=== PATIENT | male | born 1955 ===

== ENCOUNTER 2020-09-15 07:56 | Inpatient (IN) | payer OTHER ==
[~2020-09-15] VITALS: Ht 170.2 cm; Wt 83.9 kg
[~2020-09-15 07:56] MED LIST: NORVASC5 MG PO; PROCARDIA PO
[2020-09-16] MEDS ORDERED: HALOBETASOL PRO15 G1 (08:09)
[2020-09-16] MEDS ORDERED: NYSTATIN-TRIAMC15 GM (08:09)
[2020-09-16] MEDS ORDERED: CLOBETASOL PROP50 ML (08:09)
[2020-09-16] MEDS ORDERED: SULINDAC200 MG (08:10)
[2020-09-16] MEDS ORDERED: ALPRAZOLAM0.5 MG (08:10)
[2020-09-16] MEDS ORDERED: TRIAMCINOLONE A15 G1 (08:10)
[2020-09-16] MEDS ORDERED: ATORVASTATIN CA40 MG (08:10)
[2020-09-16] MEDS ORDERED: INDAPAMIDE2.5 MG (08:10)
[2020-09-16] MEDS ORDERED: NIFEDIPINE ER30 M1 (08:10)
== END 2020-09-16 10:09 | disposition home or self-care (01) | DRG 664 ==
LOC: CIR.AMB 07:56 → O/R 14:21 → SURH 14:21
PROVIDERS: ADMIT Urology; ATTEND Urology
PROC: 0THD8LZ Insertion of Artificial Sphincter into Urethra, Via Natural or Artificial Opening Endoscopic (ICD-10-PCS; principal; 2020-09-15 07:45)
DX: N39.45 Continuous leakage (principal); N39.3 Stress incontinence (female) (male); N99.89 Other postprocedural complications and disorders of genitourinary system; I10 Essential (primary) hypertension; Z85.46 Personal history of malignant neoplasm of prostate; Z98.890 Other specified postprocedural states